=== PATIENT | male | born 1970 | race Caucasian/White ===

== ENCOUNTER → 2020-11-28 13:10 | Outpatient (BNVA) | payer OTHER, SELFPAY | PROVIDERS: Visit Provider Nurse Practitioner Family | DX: M79.672 Pain in left foot (principal); S92.352A Displaced fracture of fifth metatarsal bone, left foot, initial encounter for closed fracture; X58.XXXA Exposure to other specified factors, initial encounter; Z68.31 Body mass index [BMI] 31.0-31.9, adult | CPT/HCPCS: 73630 ==

== ENCOUNTER → 2020-12-14 12:23 | Outpatient (BNVA) | payer OTHER, SELFPAY | PROVIDERS: Visit Provider Podiatrist Foot & Ankle Surgery | DX: Z20.822 Contact with and (suspected) exposure to COVID-19 (principal); S99.192A Other physeal fracture of left metatarsal, initial encounter for closed fracture | CPT/HCPCS: 87635 ==

== ENCOUNTER → 2020-12-15 16:16 | Outpatient (BNVA) | payer OTHER, SELFPAY | PROVIDERS: Visit Provider Podiatrist Foot & Ankle Surgery | DX: M25.579 Pain in unspecified ankle and joints of unspecified foot (principal); S99.192A Other physeal fracture of left metatarsal, initial encounter for closed fracture | CPT/HCPCS: 73610; 73630 ==

== ENCOUNTER → 2020-12-28 15:33 | Outpatient (BNVA) | payer OTHER, SELFPAY | PROVIDERS: Visit Provider Family Medicine | DX: Z20.822 Contact with and (suspected) exposure to COVID-19 (principal); S99.192A Other physeal fracture of left metatarsal, initial encounter for closed fracture; Y99.0 Civilian activity done for income or pay | CPT/HCPCS: 87635 ==

== ENCOUNTER 2020-12-31 08:29 | Day surgery (SDC) | payer OTHER, SELFPAY ==
[2020-12-30 10:01] VITALS: BMI 31.6
--- NOTE | 2020-12-31 | SCC_ITS ---
Procedure Done: Reduction internal fixation left fifth metatarsal fracture. CPT 90240 41 seconds of fluoroscopic guidance, for a cumulative dose of 0.7 mGy, was provided to Dr. Lazaro by the radiology department. C-arm images of the LEFT foot were saved for the patient's permanent record. [facility]
[2020-12-31 08:41] VITALS: BP 145/96; PULSE 84; RESP 18; TEMP 36.9; O2SAT 94
--- NOTE | 2020-12-31 08:53 | W.PM.OPSUD ---
Surgery/Procedure H&P Update DATE OF PROCEDURE: December 31, 2020 DATE H&P PERFORMED: 12/15/20 H&P UPDATE INFORMATION: I have reviewed H&P completed within last 30 days, I have examined patient prior to procedure, No changes to prior documentation and H&P is in [facility] EMR on date indicated PREOP DIAGNOSIS: Left fifth metatarsal fracture PLANNED PROCEDURE: Operation Date: 12/31/20 10:10 Proposed Procedures p ORIF Metatarsal left 5 [id number] S92.352A(Left) - López Lazaro DPM
[2020-12-31] MEDS: sodium chloride 0.9% 1,000 ML 30 ML IV (09:11)
--- NOTE | 2020-12-31 09:19 | P.ANESASSM_ITS ---
Pre-Anesthetic Assessment Pre-Anesthetic Assessment: Height/Weight: Height 1.85 m Weight 108.862 kg Temp Pulse Resp BP Pulse Ox 98.4 F 84 18 145/96 94 12/31/20 08:41 12/31/20 08:41 12/31/20 08:41 12/31/20 08:41 12/31/20 08:41 Preop Diagnosis: Left fifth metatarsal fracture Proposed Procedure: Operation Date: 12/31/20 10:10 Proposed Procedures p ORIF Metatarsal left 5 [id number] S92.352A(Left) - López Lazaro DPM Familial anesthetic complications: None Was Beta Marilyn taken within 24 hours: N/A Was Clonidine taken within 24 hours: N/A Last intake: Intake Last Liquid Date 12/31/20 Last Liquid Time 06:00 Last Solid Date 12/30/20 Last Solid Time 21:00 Social: Social History: Tobacco and No alcohol Exam: Pre-Anes Outpt Exam: alert, oriented x 3, clear to auscultation bilaterally and regular rate & rhythm Airway: Cervical ROM: WNL MP: 3 Dentition: False (uppers) Anesthetic Plan: ASA status: 1 Anesthesia: MAC Risk of > 500 ml blood loss (7ml/kg in children): No Meds/Allergies Current Medications: Current Medications Generic Name Dose Route Start Last Admin Trade Name Freq PRN Reason Stop Dose Admin Sodium Chloride 1,000 mls @ 30 ml s/hr 12/31/20 08:45 12/31/20 09:11 Sodium Chloride 0.9% IV 01/01/21 08:44 30 mls/hr .Q24H [place] Administration PFSH Anesthesia 2 PFSH: Social History Smoking and tobacco status: current every day smoker Data Anesthesia Cardiac Studies: No Data to Display
[2020-12-31] MEDS: lidocaine 1% INJ 20 mL IM (10:18)
[2020-12-31 11:05] VITALS: BP 102/67; PULSE 86; RESP 16; TEMP 36.3; O2SAT 92
[2020-12-31 11:10] VITALS: BP 105/62; PULSE 81; RESP 16; O2SAT 93
--- NOTE | 2020-12-31 11:12 | XR_ITS ---
WS: [id number] LEFT FOOT; 3 IMAGES HISTORY: post op COMPARISON: 12/15/2020 Single screw has been placed at the fracture in the proximal diaphysis of the fifth metatarsal. Align ment is normal. 2.8 mm separation of the fracture. XR/XR foot LT min 3V* [id number] IMPRESSION: Screw fixation proximal fifth metatarsal fracture.
--- NOTE | 2020-12-31 11:12 | SUR.PHASEI ---
1112- ORAL AIRWAY REMOVED, SIMPLE MASK AT 6LPM SAT 93%
[2020-12-31 11:15] VITALS: BP 133/95; PULSE 100; RESP 18; TEMP 36.3; O2SAT 93
[2020-12-31 11:21] VITALS: BP 139/87; PULSE 102; RESP 18; TEMP 36.3; O2SAT 93
[2020-12-31 11:41] VITALS: BP 120/90; PULSE 93; RESP 18; TEMP 36.3; O2SAT 94
--- NOTE | 2020-12-31 12:03 | P.OP_ITS ---
Operative Report Date of procedure: December 31, 2020 Pre-op Diagnosis: Left fifth metatarsal fracture Procedure Done: Reduction internal fixation left fifth metatarsal fracture. CPT 76573 Implants: [place] 5.5 millimeter screw Surgeon: López Lazaro D.P.M. Administrative Manager: Ayleen Anesthesia: MAC Estimated blood loss: Less than 5 mL Tourniquet time: See intraoperative documentation Complications: None Condition: stable Disposition: PACU Brief History: Patient is 1 month out from Cabrera fracture had issues with insurance and authorization of this procedure. Discussed risks of surgical intervention consisting of but not limited to pain, bleeding, numbness, inf ection, swelling, damage to adjacent soft tissue structures, delayed union, malunion and nonunion, hardware failure and hardware irritation. Need for further surgical intervention. Patient interviewed preoperatively and discussed the following outlined above, informed consent signed he is n.p.o., wishes to proceed. No guarantees written, expressed or implied. I also once again revisited the nonunion rate of fifth metatarsal fractures. Procedure: Patient was brought to the operating room and placed on the operating table in supine position. A timeout was performed. Anesthesia was then administered by the anesthesia service. Local anesthesia injected by myself left ankle block. Left lower extremity was scrubbed, prepped and draped utili nuzhatng normal aseptic technique followed by examination with Esmarch bandage and tourniquet inflated at the left ankle this is well-padded and inflated to 250 mmHg. K wire was inserted in the intramedullary canal of the left fifth metatarsal followed by fixation utilizing a [place] newly acquired [employer] medical 5.5 mm Cabrera screw utilizing standard AO technique, prior to fixation infuse utilizing bone marrow aspirate from calcaneus and biologic at night to impart osteogenic and osteo-conductive benefits at the fracture site. Placement confirmed with fluoroscopy in all 3 planes. Incision was flushed and closed utilizing 4-0 nylon. Incision dressed utilizing Adaptic, sterile 4 x 4, Kerlix and Constantin wrap, cam boot was applied and tourniquet deflated with prompt hyperemic response noted to the toes of the left foot. Patient tolerated procedure well he was advised to be strict nonweightbearing following the procedure of note nursing staff had difficulty keeping him nonweightbearing as he walked in the preoperative holding, he also walked from his bed to the wheelchair to be transferred outside and was seen walking again getting into his car. Nursing staff brought it to my attention that he was noncompliant with weightbearing status. They also reinforce this directly with the patient to improve chances of healing and decrease risks of complication. Patient also advised to take 81 mg aspirin once daily for DVT prophylaxis. Will follow up in podiatry clinic next week. He was given my cell phone number with postoperative discharge instructions.
--- NOTE | 2020-12-31 16:00 | ANE.PACU2 ---
Inpatient post-anesthesia follow up: Airway intact: Yes Vital signs: Temperature 97.3 F Pulse Rate 93 Respiratory Rate 18 Blood Pressure 120/90 Pulse Oximetry 94 Oxygen Delivery Me thod Room Air Oxygen Flow Rate 6 Fraction of Inspir ed Oxygen Hydration adequate: Yes Nausea and vomiting: No Pain level: 1 Mental status: Baseline
== END 2020-12-31 12:04 | disposition home or self-care (01) ==
PROVIDERS: Visit Provider Podiatrist Foot & Ankle Surgery
PROC: (CPT 28485; principal; 2020-12-31 10:00)
DX: S92.352A Displaced fracture of fifth metatarsal bone, left foot, initial encounter for closed fracture (principal); W22.8XXA Striking against or struck by other objects, initial encounter; F17.210 Nicotine dependence, cigarettes, uncomplicated
CPT/HCPCS: 28485; 73630; 76000; C1713; C1762; J0690; J2704; J3010; J3490; J7030

== ENCOUNTER 2021-01-07 10:05 | Outpatient (CLI) | payer OTHER, SELFPAY ==
--- NOTE | 2021-01-07 10:14 | XR_ITS ---
WS: [id number] Left foot, 3 views, 01/07/2021 Clinical Data: pain Comparison: Left foot, 12/31/2020. Findings: The screw in the left fifth metatarsal is reducing the fracture of the proximal portion. The remainder of the foot is unremarkable. XR/XR foot LT min 3V* [id number] Impression: Internal fixation of fracture of base of left fifth metatarsal.
== END 2021-01-07 10:06 | disposition home or self-care (01) ==
LOC: RAD 10:12
PROVIDERS: Visit Provider Podiatrist Foot & Ankle Surgery
DX: S92.352A Displaced fracture of fifth metatarsal bone, left foot, initial encounter for closed fracture (principal); X58.XXXA Exposure to other specified factors, initial encounter
CPT/HCPCS: 73630

== ENCOUNTER → 2021-01-14 13:52 | Outpatient (BNVA) | payer OTHER, SELFPAY | PROVIDERS: Visit Provider Podiatrist Foot & Ankle Surgery | DX: S99.192G Other physeal fracture of left metatarsal, subsequent encounter for fracture with delayed healing (principal); Y99.0 Civilian activity done for income or pay; Z96.9 Presence of functional implant, unspecified | CPT/HCPCS: 73630 ==

== ENCOUNTER → 2021-01-31 13:50 | Outpatient (BNVA) | payer OTHER, SELFPAY | PROVIDERS: Visit Provider Podiatrist Foot & Ankle Surgery | DX: S93.402A Sprain of unspecified ligament of left ankle, initial encounter (principal); X58.XXXA Exposure to other specified factors, initial encounter | CPT/HCPCS: 73630 ==

== ENCOUNTER → 2021-02-16 11:28 | Outpatient (BNVA) | payer OTHER, SELFPAY | PROVIDERS: Visit Provider Podiatrist Foot & Ankle Surgery | DX: S93.402A Sprain of unspecified ligament of left ankle, initial encounter (principal); X58.XXXA Exposure to other specified factors, initial encounter; M79.672 Pain in left foot | CPT/HCPCS: 73630 ==

== ENCOUNTER → 2021-03-16 13:28 | Outpatient (BNVA) | payer OTHER, SELFPAY | PROVIDERS: Visit Provider Podiatrist Foot & Ankle Surgery | DX: S99.192G Other physeal fracture of left metatarsal, subsequent encounter for fracture with delayed healing (principal); W18.42XD Slipping, tripping and stumbling without falling due to stepping into hole or opening, subsequent encounter | CPT/HCPCS: 73630 ==

== ENCOUNTER → 2021-04-06 13:07 | Outpatient (BNVA) | payer OTHER, SELFPAY | PROVIDERS: Visit Provider Podiatrist Foot & Ankle Surgery | DX: S99.192K Other physeal fracture of left metatarsal, subsequent encounter for fracture with nonunion (principal); W18.42XD Slipping, tripping and stumbling without falling due to stepping into hole or opening, subsequent encounter | CPT/HCPCS: 73630 ==